=== PATIENT | male | born 1950 | race Caucasian/White ===

== ENCOUNTER 2020-05-24 06:10 | Day surgery (SDC) | payer OTHER ==
[2020-05-20 15:03] LABS: Absolute Lymphocytes (CBC) 2.9 K/uL (0.7-4.9); Basophils % 0.5 % (0-1.3); Hematocrit 44.4 % (39.6-49.0); MPV 8.2 fL (7.6-11.3); RBC Red Blood Cell Count 5.28 M/uL (4.33-5.43)
[2020-05-20 15:16] LABS: Potassium 4.3 mmol/L (3.5-5.1)
[2020-05-24] MEDS ORDERED: NA CHLORIDE 0.9% 1,000 ML ONE (06:44)
[2020-05-24] MEDS ORDERED: CEFAZOLIN/SWI 1gm 1 GM/10 ML SYR ONE (06:45)
[2020-05-24] MEDS ORDERED: LIDOCAINE 1% MPF 5 ML VIAL ONE (07:21)
[2020-05-24] MEDS ORDERED: MIDAZOLAM HCL 2 MG/2 ML INJ ONE (07:21)
[2020-05-24] MEDS ORDERED: propofoL 200 MG/20 ML VIAL IV ONE (07:21)
[2020-05-24] MEDS ORDERED: FENTANYL CITR 100 MCG/2 ML ONE ×2 (07:21→10:10)
[2020-05-24] MEDS ORDERED: KETOROLAC 30 MG/ML INJ ONE (08:10)
[2020-05-24] MEDS ORDERED: ONDANSETRON 4 MG/2 ML VIAL ONE (08:12)
[2020-05-24] MEDS ORDERED: EPHEDRINE SULF 50 MG/ML VIAL ONE (08:33)
[2020-05-24] MEDS ORDERED: NS 0.9% VIAL 10 ML ONE (08:33)
[2020-05-24 11:11] VITALS: TEMP 96.5; O2SAT 96
--- NOTE | 2020-05-24 11:35 | OP ---
Date of Procedure: 05/24/2020 Surgeon: Christo Walter MD Ent Nurse: JUAN Klein. Preoperative Diagnoses: Left forearm mass, right leg mass, left flank mass, posterior neck mass, and right neck mass. Please note, the patient tried to use a glaze grinder on the left forearm mass and right leg mass, had blee ding on the right leg, and when I evaluated him in the day surgery, it appeared that there was an ulc erated mass and probably needed a wide excision with a frozen section on the left forearm. There was hypertrophic keratosis that was present and that needed wide excision as well to rule out squamous c ell carcinoma. Therefore, informed consent was added to the existing consent for those 2 areas. Postoperative Diagnosis: Left forearm mass, right leg mass, left flank mass, posterior neck mass, an d right neck mass. Procedure: Wide excision of left forearm mass, 4 x 2 cm, with layered closure and frozen section, an d margins were free. Wide excision of right leg mass 5 x 3 cm with layered closure and frozen sectio n and margins were free. Wide excision of left flank mass 6 x 4 cm with layered closure. Wide excis ion of posterior neck mass 6 x 4 cm layered closure, and wide excision of right neck mass 4 x 2 cm wi th layered closure. Estimate Blood Loss: Minimal. Specimen: As above. Findings: As above. Anesthesia: General. Complications: None. Disposition: The patient tolerated the procedure in stable condition and taken to Recovery in good g eneral condition. Operative Note: The patient was brought to the OR and placed in supine position. General anesthesia was begun. The patient was placed in the supine position. Prepped and draped in the usual sterile fashion. Then, a 15 blade was used to make a 4 x 2 cm incision on the left forearm and right leg 5 x 3 cm and then subcutaneous tissues were divided and both masses excised. The forearm mass was a hyp ertrophic keratosis and the right leg mass was ulcerated mass. Frozen section revealed margins to be free, permanent. We will determine the final diagnosis. Wound was irrigated, bleeding was controll ed with cautery, flaps created, and then a 4 x 2 cm incision was closed in left forearm with 2-0 manager of exhibitions and collections aristides and then skin was closed with 3-0 nylon. Right leg 0 chromic and 2-0 nylon were used to close th e wound after flaps were created. Then, the patient had sterile dressing was applied and then placed in the right lateral position and the left flank and posterior neck were prepped and draped in the u sual sterile fashion and then in both areas 6 x 4 cm incision was made. These were sebaceous cysts. They were excised down through the subcutaneous tissues in both areas was 6 x 4 and then a mass was excised and sent to Pathology as a specimen. Wound was irrigated, flaps created, and then 0 chromic was used to close the subcutaneous tissue and 2-0 nylon was used to close the skin and then a sterile dressing was applied and the patient was positioned in the left lateral position and the right neck was prepped and draped in the usual sterile fashion. Marcaine was infiltrated locally in all of the incisions prior to the 15 blade incision and then a 4 x 2 cm incision was made on the right neck and a sebaceous cyst was excised down through the deep subcutaneous tissue and sent to Pathology as speci men. Wound was irrigated. Bleeding was controlled with cautery. 2-0 chromic was used to close the subcutaneous tissue. 3-0 nylon was used to close the skin. Sterile dressing was applied. The patie nt was awakened and taken to Recovery in good general condition. The patient will go to Day Surgery when stable. Disposition: Home. Condition: Stable. Discharge Instructions: Resume home medications and diet. Activity as tolerated. No heavy lifting. Remove outer dressing in 2 days. Shower. Keep wound clean and dry. Follow up in my office in 10 days, call for appointment. Tylenol No. 3 one tablet p.o. q.4 p.r.n. pain. Keflex 500 mg p.o. q.6. /MODL Voice ID: [id number] Report ID: [id number]
[2020-05-24 13:08] VITALS: BP 137/61
== END 2020-05-24 12:00 | disposition home or self-care (01) ==
LOC: OR 06:10
PROVIDERS: ATTEND Surgery
PROC: 0JBN0ZZ Excision of Right Lower Leg Subcutaneous Tissue and Fascia, Open Approach (ICD-10-PCS; 2020-05-24)
PROC: 0JB70ZZ Excision of Back Subcutaneous Tissue and Fascia, Open Approach (ICD-10-PCS; 2020-05-24)
PROC: 0JBH0ZZ Excision of Left Lower Arm Subcutaneous Tissue and Fascia, Open Approach (ICD-10-PCS; 2020-05-24)
PROC: 0JB40ZZ Excision of Right Neck Subcutaneous Tissue and Fascia, Open Approach (ICD-10-PCS; principal; 2020-05-24 07:30)
DX: D48.5 Neoplasm of uncertain behavior of skin (principal); L57.0 Actinic keratosis; L72.0 Epidermal cyst; D23.4 Other benign neoplasm of skin of scalp and neck; R22.41 Localized swelling, mass and lump, right lower limb; R22.2 Localized swelling, mass and lump, trunk; R22.1 Localized swelling, mass and lump, neck; Z20.822 Contact with and (suspected) exposure to COVID-19
CPT/HCPCS: 85025; 80048; 36415; 82947 ×2; 88331; 88332; 88304; 88305; 11404; 11406 ×2; 11426; 11424; U0002; J2704; J2250; J3010 ×2; J0690; J7030; J2405

== ENCOUNTER 2020-10-16 07:43 | Inpatient (IN) | payer OTHER ==
[2020-10-16] MEDS ORDERED: VANCOMYCIN/NS 1 gm 1 GM/250 ML BAG IV ONE (08:30)
[2020-10-16 08:41] LABS: Absolute Lymphocytes (CBC) 1.6 K/uL (0.7-4.9); Basophils % 0.6 % (0-1.3); Hematocrit 43.2 % (39.6-49.0); Lymphocytes % 12.5 % (15.3-44.8); MPV 7.6 fL (7.6-11.3); RBC Red Blood Cell Count 5.15 M/uL (4.33-5.43)
[2020-10-16] MEDS ORDERED: PIPER/TAZO/NS 3.375gm 3.375 GM/100 ML BAG ONE (08:41)
[2020-10-16 08:52] LABS: Bilirubin Direct 0.2 mg/dL (0-0.2); Bilirubin Total 0.8 mg/dL (0.2-1.0); Potassium 4.2 mmol/L (3.5-5.1); Protein, Total 8.4 g/dL (6.4-8.2)
[2020-10-16 08:55] LABS: Protime INR 1.07
--- NOTE | 2020-10-16 09:03 | EDPHYS ---
Physician Documentation [facility] Name: Donald Rogers Age: 70 yrs Sex: Male : 1950 Arrival Date: 10/16/2020 Time: 07:45 Bed 20 Private MD: ED Physician Frederick Acosta HPI: 10/16 15:30 This 70 yrs old Male presents to ER via Wheelchair with complaints of Black tw4 Toe. 15:30 The patient presents with pain. The complaints affect the left foot. Context: The tw4 problem was sustained at home. Onset: The symptoms/episode began/occurred at an unknown time. Modifying factors: The symptoms are alleviated by nothing, the symptoms are aggravated by nothing. Severity of symptoms: At their worst the symptoms were moderate, in the emergency department the symptoms are unchanged. The patient has not experienced similar symptoms in the past. Historical: - Allergies: 08:08 No Known Allergies; ph - Home Meds: 08:08 Metformin Oral [Active]; gabapentin oral oral [Active]; glimepiride Oral [Active]; ph - PMHx: 08:08 Diabetes - NIDDM; neuropathy; Heart Murmur; ph - Social history:: Smoking status: Patient reports the use of cigarette tobacco products, smokes one pack cigarettes per day. ROS: 15:30 MS/extremity: Positive for pain, of the left third toe. tw4 Exam: 15:52 Constitutional: This is a well developed, well nourished patient who is awake, alert, tw4 and in no acute distress. Head/Face: Normocephalic, atraumatic. Chest/axilla: Normal chest wall appearance and motion. Nontender with no deformity. No lesions are appreciated. Cardiovascular: Regular rate and rhythm with a normal S1 and S2. No gallops, murmurs, or rubs. Normal PMI, no JVD. No pulse deficits. Respiratory: Lungs have equal breath sounds bilaterally, clear to auscultation and percussion. No rales, rhonchi or wheezes noted. No increased work of breathing, no retractions or nasal flaring. Abdomen/GI: Soft, non-tender, with normal bowel sounds. No distension or tympany. No guarding or rebound. No evidence of tenderness throughout. Back: No spinal tenderness. No costovertebral tenderness. Full range of motion. Skin: Warm, dry with normal turgor. Normal color with no rashes, no lesions, and no evidence of cellulitis. Neuro: Awake and alert, GCS 15, oriented to person, place, time, and situation. Cranial nerves II-XII grossly intact. Motor strength 5/5 in all extremities. Sensory grossly intact. Cerebellar exam normal. Normal gait. 15:52 Musculoskeletal/extremity: Extremities: noted in the left foot: Vital Signs: 08:03 BP 120 / 103; Pulse 89; Resp 18; Temp 98.1(O); Pulse Ox 99% on R/A; Weight 99.79 kg; ph Height 6 ft. 0 in. (182.88 cm); 08:33 BP 143 / 65; Pulse 80; Resp 17; Pulse Ox 99% on R/A; tw2 09:33 BP 142 / 66; Pulse 81; Resp 17; Pulse Ox 99% on R/A; tw2 10:00 BP 124 / 99; Pulse 76; Resp 20; Pulse Ox 95% on R/A; tw2 11:23 BP 135 / 88; Pulse 79; Resp 17; Pulse Ox 95% on R/A; tw2 20:35 BP 136 / 89; Pulse 70; Resp 16; Pulse Ox 95% ; rr5 08:03 Body Mass Index 29.84 (99.79 kg, 182.88 cm) ph MDM: 09:03 Patient medically screened. tw4 15:55 Differential diagnosis: fracture. Data reviewed: vital signs, nurses notes. Data tw4 interpreted: Pulse oximetry: Interpretation: normal. Special discussion: I discussed with the patient/guardian in detail that at this point there is no indication for admission to the hospital. It is understood, however, that if the symptoms persist or worsen the patient needs to return immediately for re-evaluation. 15:55 Data reviewed: lab test result(s), cardiac enzymes, CBC, electrolytes, EKG, radiologic tw4 studies, plain films. Test interpretation: by ED physician or midlevel provider: ECG, plain radiologic studies. Counseling: I had a detailed discussion with the patient and/or guardian regarding: the historical points, exam findings, and any diagnostic results supporting the discharge/admit diagnosis, lab results, radiology results. Physician consultation: Nguyễn Pinon regarding admission, to the telemetry unit. patient's condition, and will see patient in inpatient room. 10/16 08:00 Order name: Wound Culture tw4 10/16 08:00 Order name: Amylase, Serum tw4 10/16 08:00 Order name: Basic Metabolic Panel tw4 10/16 08:00 Order name: Blood Culture Adult (2) tw4 10/16 08:00 Order name: CBC with Diff; Complete Time: 08:53 tw4 10/16 08:00 Order name: Lactate; Complete Time: 08:53 tw4 10/16 08:00 Order name: LFT's; Complete Time: 08:53 tw4 10/16 08:00 Order name: Lipase; Complete Time: 08:53 tw4 10/16 08:00 Order name: Procalcitonin; Complete Time: 15:22 tw4 10/16 08:00 Order name: Protime (+inr); Complete Time: 15:22 tw4 10/16 08:00 Order name: Ptt, Activated; Complete Time: 15:22 tw4 10/16 08:00 Order name: Wound Culture EDVA 10/16 08:00 Order name: Amylase; Complete Time: 08:53 EDMS 10/16 08:00 Order name: Basic Metabolic Panel; Complete Time: 08:53 EDMS 10/16 08:00 Order name: Cardiac monitoring; Complete Time: 08:32 tw4 10/16 08:00 Order name: IV Saline Lock - Large Bore; Complete Time: 08:32 tw4 10/16 08:00 Order name: Labs collected and sent; Complete Time: 08:32 tw4 10/16 08:00 Order name: Foot Left 3 View XRAY; Complete Time: 10:00 tw4 10/16 08:00 Order name: Blood Culture EDMS 10/16 11:52 Order name: Glucose, Ancillary Testing; Complete Time: 15:22 EDMS 10/16 13:22 Order name: US; Complete Time: 15:22 EDMS 10/16 13:42 Order name: Lipid Profile; Complete Time: 15:22 EDMS 10/16 13:44 Order name: Hemoglobin A1c; Complete Time: 15:22 EDMS 10/16 13:45 Order name: Troponin I; Complete Time: 15:22 EDMS 10/16 15:14 Order name: CORONAVIRUS EDVA 10/16 16:01 Order name: SARS-COV-2 RT PCR EDMS 10/16 17:39 Order name: Urine Dipstick-Ancillary EDMS 10/16 08:00 Order name: O2 Per Protocol; Complete Time: 08:18 tw4 10/16 08:00 Order name: O2 Sat Monitoring; Complete Time: 08:19 tw4 10/16 08:00 Order name: Urine Dipstick-Ancillary (obtain specimen); Complete Time: 19:26 tw4 Administered Medications: 08:25 Drug: Zosyn (piperacillin-tazobactam) 3.375 grams Route: IVPB; Infused Over: 60 mins; tw2 Site: right antecubital; 09:32 Follow up: Response: No adverse reaction; IV Status: Completed infusion; IV Intake: tw2 100ml 09:30 Drug: vancoMYCIN 1 grams Route: IVPB; Infused Over: 2 hrs; Site: right antecubital; tw2 12:02 Follow up: Response: No adverse reaction; IV Status: Completed infusion; IV Intake: tw2 250ml Disposition: 10/16/20 09:03 Hospitalization ordered by Nguyễn Pinon for Inpatient Admission. Preliminary diagnosis are Cellulitis of left lower limb, Gangrene, not elsewhere classified, Diabetes mellitus due to underlying condition with foot ulcer. - Bed requested for Telemetry/MedSurg (Inpatient). - Status is Inpatient Admission. rr5 - Condition is Stable. - Problem is an ongoing problem. - Symptoms are unchanged. Signatures: Dispatcher [employer] EDVA Diana Wade Patricia, RN RN Afua Kim RN RN tw2 Frederick Acosta MD MD tw4 Dave Quiroz RN RN rr5 Corrections: (The following items were deleted from the chart) 08:32 08:00 Accucheck ordered. tw4 tw2 11:27 09:03 Hospitalization Ordered by Nguyễn Pinon for Inpatient Admission. Preliminary bd diagnosis is Cellulitis of left lower limb; Gangrene, not elsewhere classified; Diabetes mellitus due to underlying condition with foot ulcer. Bed requested for Telemetry/MedSurg (Inpatient). Status is Inpatient Admission. Condition is Stable. Problem is an ongoing problem. Symptoms are unchanged. tw4 18:48 11:27 10/16/2020 09:03 Hospitalization Ordered by Nguyễn Pinon for Inpatient bd Admission. Preliminary diagnosis is Cellulitis of left lower limb; Gangrene, not elsewhere classified; Diabetes mellitus due to underlying condition with foot ulcer. Bed requested for [facility] ER HOLD. Status is Inpatient Admission. Condition is Stable. Problem is an ongoing problem. Symptoms are unchanged. bd 21:00 18:48 10/16/2020 09:03 Hospitalization Ordered by Nguyễn Pinon for Inpatient rr5 Admission. Preliminary diagnosis is Cellulitis of left lower limb; Gangrene, not elsewhere classified; Diabetes mellitus due to underlying condition with foot ulcer. Bed requested for Telemetry/MedSurg (Inpatient). Status is Inpatient Admission. Condition is Stable. Problem is an ongoing problem. Symptoms are unchanged. bd
--- NOTE | 2020-10-16 09:03 | ER ---
Nurse's Notes [facility] Name: Donald Rogers Age: 70 yrs Sex: Male : 1950 Arrival Date: 10/16/2020 Time: 07:45 Bed 20 Private MD: Diagnosis: Cellulitis of left lower limb;Gangrene, not elsewhere classified;Diabetes mellitus due to underlying condition with foot ulcer Presentation: 10/16 08:03 Chief complaint: Patient states: "Gangrene" to left 4th toe, unsure of when problem ph started d/t neuropathy. L 4th digit noted to be blackened in appearance, slight swelling and redness to L foot, pt denies fever N/V. Coronavirus screen: Client denies travel out of the [place] in the last 14 days. Ebola Screen: No symptoms or risks identified at this time. Initial Sepsis Screen: Does the patient meet any 2 criteria? No. Patient's initial sepsis screen is negative. Does the patient have a suspected source of infection? Yes: Skin breakdown/wound. Risk Assessment: Do you want to hurt yourself or someone else? Patient reports no desire to harm self or others. Onset of symptoms was October 16, 2020. 08:03 Method Of Arrival: Wheelchair ph 08:03 Acuity: ARIS 3 ph Historical: - Allergies: 08:08 No Known Allergies; ph - Home Meds: 08:08 Metformin Oral [Active]; gabapentin oral oral [Active]; glimepiride Oral [Active]; ph - PMHx: 08:08 Diabetes - NIDDM; neuropathy; Heart Murmur; ph - Social history:: Smoking status: Patient reports the use of cigarette tobacco products, smokes one pack cigarettes per day. Screenin:57 Abuse screen: Denies threats or abuse. Nutritional screening: No deficits noted. tw2 Tuberculosis screening: No symptoms or risk factors identified. Fall Risk Secondary diagnosis (15 points) impaired mobility, Ambulatory Aid- Crutches/Cane/Walker (15 pts). Assessment: 07:55 Reassessment: provider at bedside at this time. tw2 08:41 General: Appears in no apparent distress. obese, Behavior is calm, cooperative, tw2 appropriate for age. Pain: Complains of pain in plantar aspect of left fourth toe, left fourth toe and Left fourth toenail. Neuro: Level of Consciousness is awake, alert, obeys commands, Oriented to person, place, time, situation. Cardiovascular: Patient's skin is warm and dry. Respiratory: Airway is patent Respiratory effort is even, unlabored, Respiratory pattern is regular, symmetrical. GI: No signs and/or symptoms were reported involving the gastrointestinal system. : No signs and/or symptoms were reported regarding the genitourinary system. EENT: No signs and/or symptoms were reported regarding the EENT system. Derm: Skin is dry. Musculoskeletal: Range of motion: intact in all extremities, Reports "blackness to my 4th toe, i want leech therapy done to it but im sure they are going to amputate it, not sure how long it has been that way". 08:45 Reassessment: xray at bedside at this time. tw2 09:03 Reassessment: hospitalist at bedside at this time. tw2 09:33 Reassessment: Patient appears in no apparent distress at this time. No changes from tw2 previously documented assessment. Patient and/or family updated on plan of care and expected duration. Pain level reassessed. Patient is alert, oriented x 3, equal unlabored respirations, skin warm/dry/pink. 10:30 Reassessment: Patient appears in no apparent distress at this time. No changes from tw2 previously documented assessment. Patient and/or family updated on plan of care and expected duration. Pain level reassessed. Patient is alert, oriented x 3, equal unlabored respirations, skin warm/dry/pink. 11:23 Reassessment: Patient appears in no apparent distress at this time. No changes from tw2 previously documented assessment. Patient and/or family updated on plan of care and expected duration. Pain level reassessed. Patient is alert, oriented x 3, equal unlabored respirations, skin warm/dry/pink. 21:00 Reassessment: patient insisting he wants to go home and come back in the morning." he rr5 stated if you will not do the surgery tonight I want to leave." explained the plans for tonight but still insisting to go home. hospitalist informed and talk to the patient at bedside, but opted to go and don't want to sign the AMA and dont want to take out his IV cannula charge nurse spoke to patient and he agreed to stay for admission. Vital Signs: 08:03 BP 120 / 103; Pulse 89; Resp 18; Temp 98.1(O); Pulse Ox 99% on R/A; Weight 99.79 kg; ph Height 6 ft. 0 in. (182.88 cm); 08:33 BP 143 / 65; Pulse 80; Resp 17; Pulse Ox 99% on R/A; tw2 09:33 BP 142 / 66; Pulse 81; Resp 17; Pulse Ox 99% on R/A; tw2 10:00 BP 124 / 99; Pulse 76; Resp 20; Pulse Ox 95% on R/A; tw2 11:23 BP 135 / 88; Pulse 79; Resp 17; Pulse Ox 95% on R/A; tw2 20:35 BP 136 / 89; Pulse 70; Resp 16; Pulse Ox 95% ; rr5 08:03 Body Mass Index 29.84 (99.79 kg, 182.88 cm) ph ED Course: 07:45 Patient arrived in ED. ds1 07:48 Afua Kim RN is Primary Nurse. tw2 07:48 Frederick Acosta MD is Attending Physician. tw4 07:50 Bed in low position. Call light in reach. Pulse ox on. NIBP on. tw2 07:55 Inserted saline lock: 20 gauge in right antecubital area, using aseptic technique. tw2 ,using aseptic technique. by ALICJA sims Blood collected. 08:06 Triage completed. ph 08:08 Arm band placed on Patient placed in an exam room, on a stretcher. ph 09:00 Nguyễn Pinon is Hospitalizing Provider. tw4 09:01 Foot Left 3 View XRAY In Process Unspecified. EDMS 11:26 No provider procedures requiring assistance completed. tw2 11:26 Patient admitted, IV remains in place. tw2 Administered Medications: 08:25 Drug: Zosyn (piperacillin-tazobactam) 3.375 grams Route: IVPB; Infused Over: 60 mins; tw2 Site: right antecubital; 09:32 Follow up: Response: No adverse reaction; IV Status: Completed infusion; IV Intake: tw2 100ml 09:30 Drug: vancoMYCIN 1 grams Route: IVPB; Infused Over: 2 hrs; Site: right antecubital; tw2 12:02 Follow up: Response: No adverse reaction; IV Status: Completed infusion; IV Intake: tw2 250ml Intake: 09:32 IV: 100ml; Total: 100ml. tw2 12:02 IV: 250ml; Total: 350ml. tw2 Outcome: 09:03 Decision to Hospitalize by Provider. tw4 11:26 Admitted to ER Hold. Please see [facility] for further documentation. tw2 11:26 Condition: stable 11:26 Instructed on the need for admit. 21:00 Patient left the ED. rr5 Signatures: Dispatcher [employer] Shaina Grubbs ds1 Elana Taylor, RN RN Julio, Afua RN RN tw2 Frederick Acosta MD MD tw4 Dave Quiroz RN RN rr5
--- NOTE | 2020-10-16 09:11 | RAD REPORT ---
EXAM DESCRIPTION: RAD - Foot Left 3 View - 10/16/2020 9:01 am CLINICAL HISTORY: r/o osteo Pain and swelling COMPARISON: No comparisons FINDINGS: Mild soft tissue swelling affects the third and fourth toe. No radiographic evidence of os teomyelitis. Large plantar and small posterior calcaneal spurs.
[2020-10-16] MEDS ORDERED: LABETALOL 20 MG/4ML SYRINGE IV PRN (11:03)
[2020-10-16] MEDS ORDERED: D50W 25 GM/50 ML SYRINGE IV PRN (11:23)
[2020-10-16] MEDS ORDERED: GLUCAGON 1 MG/VIAL IM PRN (11:23)
[2020-10-16] MEDS ORDERED: MORPHINE 4 MG/ML SYR IV PRN (11:26)
[2020-10-16] MEDS ORDERED: ACETAMINOPHEN 500 MG TAB PO PRN (11:26)
[2020-10-16] MEDS ORDERED: ONDANSETRON 4 MG/2 ML VIAL IV PRN (11:26)
[2020-10-16] MEDS ORDERED: ASPIRIN 81 MG CHEWABLE TABLET PO SCH (11:30)
[2020-10-16] MEDS: INSULIN -REGULAR HUMAN 50 UNIT/0.5 ML ML SQ SCH ×3 (11:30→21:00)
--- NOTE | 2020-10-16 11:39 | P.HP ---
Certification for Inpatient Patient admitted to: Inpatient With expected LOS: >2 Midnights Patient will require the following post-hospital care: None Practitioner: I am a practitioner with admitting privileges, knowledge of patient current condition, hospital course, and medical plan of care. Services: Services provided to patient in accordance with Admission requirements found in Title 42 Section 412.3 of the Code of Federal Regulations Patient History Date of Service: 10/16/20 Reason for admission: Left 4th Digit Gangrene and Left foot cellulitis History of Present Illness: Patient is a 70-year-old male with a past medical history significant for Heart Murmur, DM 2 with neuropathy who presents with complaint of left 4th digit gangrene, left foot redness and swelling. Patient reported that he noticed discoloration on the left 4th digit 5 days ago. Patient reported that the left 4th digit is now completely black. Patient also reports left foot pain rated as 10/10 and described as throbbing in quality. Patient denies any other signs and symptoms. Symptoms are aggravated or relieved by nothing. Patient reported that he has been having trouble walking due to his Bilateral lower extremity neuropathy. Patient decided to present to the hospital due to worsening symptoms. Allergies No Known Allergies Allergy (Unverified 05/20/20 14:20) Home Medications: Aspirin 81 mg PO DAILY 05/20/20 Metformin HCl 1,000 mg PO BID 05/20/20 - Past Medical/Surgical History -: Heart murmur -: DM 2 with neuropathy. - Social History Smoking Status: Current every day smoker Counseled patient to stop smoking for: less than 10 minutes Smoking therapy provided: Yes Patient receptive to therapy: No Alcohol use: Yes CD- Drugs: No Caffeine use: Yes Place of Residence: Home Review of Systems General: Unremarkable Eyes: Unremarkable ENT: Unremarkable Respiratory: Unremarkable Cardiovascular: Unremarkable Gastrointestinal: Unremarkable Genitourinary: Unremarkable Musculoskeletal: Leg Pain, Other (Left foot redness\swelling, Left 4th digit gangrene ) Integumentary: Unremarkable Neurological: Unremarkable Lymphatics: Unremarkable Physical Examination - Physical Exam General: Alert, In no apparent distress, Oriented x3 HEENT: Atraumatic, PERRLA, Mucous membr. moist/pink, EOMI, Sclerae nonicteric Neck: Supple, 2+ carotid pulse no bruit, No LAD, Without JVD or thyroid abnormality Respiratory: Clear to auscultation bilaterally, Normal air movement Cardiovascular: No edema, Regular rate/rhythm, Normal S1 S2 Capillary refill: Brisk Gastrointestinal: Normal bowel sounds, No tenderness Musculoskeletal: No clubbing, No tenderness Integumentary: No rashes, Tenderness/swelling (Left foot ), Erythema Neurological: Normal gait, Normal speech, Normal strength at 5/5 x4 extr, Normal tone, Normal affect Lymphatics: No axilla or inguinal lymphadenopathy External genitalia: Deferred Rectal: Deferred - Studies Laboratory Data (last 24 hrs) 10/16/20 08:17: PT 12.3, INR 1.07, APTT 31.0 10/16/20 08:17: WBC 12.70 H, Hgb 14.9, Hct 43.2, Plt Count 327 10/16/20 08:17: Sodium 138, Potassium 4.2, BUN 12, Creatinine 0.92, Glucose 164 H, Total Bilirubin 0.8, AST 11 L, ALT 24, Alkaline Phosphatase 77, Amylase 27, Lipase 56 L Assessment and Plan - Plan --Left 4th digit gangrene. X-ray does not indicate any osteomyelitis. Blood cultures pending. Patient placed on antibiotics. Surgeon consulted. Bilateral Lower extremity Doppler pending. Will await further recommendations from surgeon. --Acute Pain. Will manage pain with current pain medication regimen --Left foot cellulitis. Blood cultures pending. Continue antibiotics. -- Leukocytosis. Blood cultures pending. Continue antibiotics. --DM 2 with neuropathy. BS monitoring with sliding scale insulin. Continue home medication for his neuropathy. --Nicotine dependence. Patient placed on nicotine patch and counseled on tobacco cessation --CKD 2. Stable. Will continue to monitor renal functions. --DVT prophylaxis with SCDs. Discharge Plan: Home Plan to discharge in: Greater than 2 days - Advance Directives Does patient have a Living Will: No Does patient have a Durable POA for Healthcare: No - Code Status/Comfort Care Code Status Assessed: Yes Code Status: Full Code Critical Care: No
[2020-10-16] MEDS ORDERED: VANCOMYCIN 1 GM in NA CHLORIDE 0.9% 500 ML IVPB SCH (12:00)
[2020-10-16] MEDS: NICOTINE 21 MG/PAT TD SCH (12:27)
--- NOTE | 2020-10-16 13:21 | RAD REPORT ---
EXAM DESCRIPTION: US - Lower Extremity Arterial Bilat - 10/16/2020 1:05 pm CLINICAL HISTORY: gangreneleft fourth toe, leg pain COMPARISON: None. TECHNIQUE: Visual inspection of the arterial tree performed. Waveforms were obtained along the lengt h of each lower extremity. Velocity values obtained as well. FINDINGS: Right lower extremity shows triphasic waveform pattern in the common femoral and superfici al femoral arteries tapering to a biphasic flow in the popliteal artery. Right posterior tibial arter y shows a significantly dampened monophasic waveform pattern. Dorsalis pedis shows monophasic wavefor m. Left common femoral artery waveform pattern is triphasic. Proximal and mid portions of the superficia l femoral artery showing dampened biphasic to monophasic waveform pattern. The distal superficial fem oral artery show significant atherosclerotic plaquing changes with elevated velocity. The left dorsal is pedis artery is a monophasic waveform pattern with no blood flow confirmed in the posterior tibial artery. . IMPRESSION: Bilateral significant peripheral arterial disease is present. Patient has significant flow restricting stenosis at the left superficial femoral artery distally. No flow could be confirmed in the left posterior tibial artery.
[2020-10-16 17:39] LABS: Urine Blood Negative (Negative); Urine Glucose Negative (Negative); Urine Protein 2+ (Negative); Urine Specific Gravity >=1.030 (1.005-1.030)
--- NOTE | 2020-10-16 18:41 | CON ---
Date of Consultation: 10/16/2020 Reason For Consultation: Gangrene of left fourth. History Of Present Illness: The patient is a 70-year-old gentleman, who states over the last 4-5 day s, he has had increasing discoloration of the left fourth toe associated with cool feeling of the alexander t and some redness when he is dependent and now the fourth toe is almost black and complaining of kaley n, throbbing in nature. No sore throat, runny nose, cough, headaches, or dizziness. No chest pain. No fever or chills. The patient had procedures done by me where I took off a lot of masses on him e arlier this year. Review of Systems: Otherwise unremarkable. Past Medical History: Heart murmur, type 2 diabetes. Past Surgical History: Excision of multiple masses and external fixator on his lower extremity. Medications: Reviewed. Allergies: NO ALLERGIES. Social History: He does smoke, has been counseled. Denies drinking. Family History: Noncontributory. Physical Examination: Vital Signs: Stable. He is afebrile. General: He is awake, alert, and oriented x3. Head and Neck: Cranial nerves 2 through 12 gross within normal limits. No neck masses. No JVD. Th roat clear. Neck is supple. Chest: Clear. Heart: S1, S2 with murmur. Abdomen: Soft. Extremity: Diminished dorsalis pedis and posterior tibial pulses. There is redness on the left fore foot with bluish black discoloration of the fourth toe on the left side. There is no warmth. There is a cool feeling to the foot. Laboratory Data: White count is 12.7 with a left shift. INR is 1.07. Procalcitonin is normal. Lac tic acid is normal. His glucose is 164. His x-ray does not show any evidence of osteo. Assessment: Gangrene of left foot fourth toe, significant peripheral vascular disease. Recommendations: Arterial Doppler has just been done. We will get the results and if it deemed that the patient needs intervention, we will make sure that we could provide that for the patient at this facility. If not, the patient will need to be transferred. Plan of care discussed in detail with Tessa Amor. SHIRLEY/GUCCI Voice ID: [id number] Report ID: [id number]
[2020-10-16] MEDS: CEFTRIAXONE/SWI 1gm 1 GM/10 ML SYR IV SCH (21:00)
[2020-10-16] MEDS ORDERED: HEPARIN 5000 UNIT/ML 1 ML VIAL SQ SCH (21:00)
[2020-10-16] MEDS ORDERED: CEFTRIAXONE 1 GM/NS 50 ML 1 GM/50 ML BAG IV SCH (21:00)
[2020-10-16] MEDS: VANCOMYCIN 1.75 GM in NA CHLORIDE 0.9% 500 ML IVPB SCH (21:45)
[2020-10-17 03:47] LABS: Absolute Lymphocytes (CBC) 1.9 K/uL (0.7-4.9); Basophils % 1.1 % (0-1.3); Hematocrit 38.9 % (39.6-49.0); Lymphocytes % 19.8 % (15.3-44.8); MPV 7.7 fL (7.6-11.3); RBC Red Blood Cell Count 4.64 M/uL (4.33-5.43)
[2020-10-17 04:00] LABS: BUN Blood Urea Nitrogen 12 mg/dL (7-18); Bicarbonate 28 mmol/L (21-32); Glucose Level 109 mg/dL (74-106); Potassium 3.9 mmol/L (3.5-5.1); Sodium Level 141 mmol/L (136-145)
[2020-10-17] MEDS ORDERED: POTASSIUM CL SA 10 MEQ TAB PO ONE (06:23)
[2020-10-17] MEDS: VANCOMYCIN 1.75 GM in NA CHLORIDE 0.9% 500 ML IVPB SCH ×2 (06:28→17:55)
[2020-10-17] MEDS: INSULIN -REGULAR HUMAN 50 UNIT/0.5 ML ML SQ SCH ×4 (07:30→21:00)
[2020-10-17] MEDS ORDERED: NICOTINE 21 MG/PAT TD SCH (09:00)
[2020-10-17] MEDS: CEFTRIAXONE/SWI 1gm 1 GM/10 ML SYR IV SCH ×2 (09:00→21:23)
--- NOTE | 2020-10-17 09:21 | CON ---
Date of Consultation: 10/16/2020 Reason For Consultation: Peripheral arterial disease. History Of Present Illness: Mr. Hernández is a 70-year-old white male with history of diabetes, neuro yuli, who was admitted for gangrene in the left toes, planning to have surgery, arterial Doppler pantera wed significant SFA stenosis and I was consulted. The patient denied any cardiac symptoms. Denied a ny PND, orthopnea, pedal edema, palpitations, or syncope. Denied any fever or chills or cough. Allergies: NONE. Review of Systems: Negative. Social History: Positive for tobacco. Medications: Include metformin, gabapentin, and glimepiride. Physical Examination: Vital Signs: Stable, afebrile, sinus rhythm. HEENT: Negative. Neck: Supple with no bruit. Chest: Clear to auscultation and percussion. Cardiac: Revealed a regular rhythm and rate. No murmurs, gallops, or rubs. Abdomen: Benign. Extremities: Revealed no clubbing, cyanosis, or edema. He did have gangrene in the left fourth and fifth toes. Diagnostic Data: His creatinine was 0.92. His white count was 9.5, hemoglobin is 14.9. He had an a rterial Doppler showing bilateral significant peripheral arterial disease, appeared to be mostly in t he superficial femoral artery. EKG was unremarkable. Foot x-ray showed no evidence of osteomyelitis . Impression And Plan: Gangrenous toes on the left side secondary to severe peripheral arterial diseas e with abnormal arterial Doppler and the patient is a diabetic. No cardiac symptoms. Normal EKG. I think he is cleared for surgery down the road, but before we do an abdominal angiogram on him with r unoff with possible intervention which will be done on 10/17/2020, the patient understands the risk a nd the benefits of the procedure and he agrees to proceed. The case will be discussed with Dr. Watler . BHAVANA/GUCCI Voice ID: [id number] Report ID: [id number]
[2020-10-17] MEDS: NICOTINE 21 MG/PAT TD SCH (10:11)
--- NOTE | 2020-10-17 11:10 | P.PN ---
Subjective Date of Service: 10/17/20 Chief Complaint: Left 4th Digit Gangrene and Left foot cellulitis Patient complaining of pain in the left foot. No fever. Arterial Doppler of bilateral lower extremity results reviewed and reporting bilateral significant peripheral artery disease. Physical Examination - Vital Signs Temperature: 98.2 F Blood Pressure: 148/57 Pulse: 66 Respirations: 20 Pulse Ox (%): 96 - Physical Exam General: Alert, In no apparent distress, Oriented x3 Neck: JVD not distended Respiratory: Clear to auscultation bilaterally, Normal air movement Cardiovascular: No edema, Regular rate/rhythm, Normal S1 S2 Gastrointestinal: Normal bowel sounds, Soft and benign, Non-distended, No tenderness Musculoskeletal: Other (Left foot Swollen compared to the right, gangrene loo sameer left 4th and 5th toe.) Integumentary: Erythema (Dorsum of left foot) Neurological: Normal strength at 5/5 x4 extr, Cranial nerves 3-12 intact - Studies Microbiology Data (last 24 hrs): 10/16/20 08:21 Wound - Left Foot Gram Stain - Final Assessment And Plan - Current Problems (Diagnosis) (1) Gangrene of toe of left foot Current Visit: Yes Status: Acute (2) Peripheral arterial disease Current Visit: Yes Status: Acute (3) Diabetes mellitus type 2 in obese Current Visit: Yes Status: Acute - Plan Cardiology input appreciated. General surgery input appreciated. Patient is scheduled for angiogram and possibly intervention for PAD prior to amputation. Dr. Walter is following for amputation. Continue antibiotics. Pain management as needed. Insulin sliding scale for glucose management.
[2020-10-17] MEDS ORDERED: NA CHLORIDE 0.9% 1,000 ML ONE (12:41)
[2020-10-17] MEDS ORDERED: HEPA 1000U/500MLS 2,000 UNIT/1,000 ML BAG IV ONE (13:05)
[2020-10-17] MEDS ORDERED: FENTANYL CITR 100 MCG/2 ML ONE (13:56)
[2020-10-17] MEDS ORDERED: HEPARIN 5000 UNIT/ML 1 ML VIAL ONE ×2 (13:56→14:48)
[2020-10-17] MEDS ORDERED: MIDAZOLAM HCL 2 MG/2 ML INJ ONE (13:56)
[2020-10-17] MEDS ORDERED: ATROPINE SULF 1 MG/10 ML SYR IV ONE (13:57)
[2020-10-17] MEDS ORDERED: D50W 25 GM/50 ML VIAL IV PRN (14:00)
[2020-10-17] MEDS ORDERED: CLOPIDOGREL 75 MG TABLET ONE (14:24)
[2020-10-17] MEDS ORDERED: ASPIRIN 325 MG TAB ONE (14:25)
[2020-10-17 16:59] VITALS: BMI 29.7
--- NOTE | 2020-10-17 18:48 | OP ---
Date of Procedure: 10/17/2020 Surgeon: GARCIA BOWERS Procedures Performed: 1.Distal aortogram with bilateral peripheral angiogram and runoff. 2.Balloon angioplasty of severe multiple lesions of the left SFA followed by stent placement in the following order of distal to proximal 7 x 100 mm overlapped with 7 x 60 mm and then a proximal stent that was 7 x 80 mm. Access: Right femoral artery 7-Gabonese closed with a 6-Gabonese Angio-Seal. Complications: None. Bleeding: Less than 10 mL. Indication For Procedure: Gangrene of the left foot and severe peripheral vascular disease. Description Of Procedure: After risks, benefits, and alternatives were explained, the patient agreed to proceed and signed informed consent. The patient was brought into the cardiac catheterization la boratory, prepped and draped in usual sterile fashion. Then, we accessed the right femoral artery us ing a micropuncture kit under ultrasound guidance as well as fluoroscopy, placed 7-Gabonese sheath and then we took a 6-Gabonese diagnostic DANIELLA catheter with an Advantage wire into the distal aorta and cros sed into the left common iliac and left femoral artery and then left SFA. Subsequently, we exchanged the 7-Gabonese sheath to a long 7-Gabonese Destination sheath and placed it in the left femoral artery. Then, during the procedure systemic heparin was given to assure ACT level above 250. Then, we advan guillermo the Advantage wire all the way through the SFA to cross the areas of stenosis and the area of tot al occlusion. Then, I used a 7 x 80 mm balloon to pre-dilate lesions and focal dissection happened i n multiple areas ended up putting a 7 x 100 mm stent overlapped by 7 x 60 mm stent in the and then pr oximally 7 x 80 mm stent with excellent results. I then removed the wire and sheath and closed the a ccess with 6-Gabonese Angio-Seal. The diagnostic part through the initial access that was obtained and a 6-Gabonese pigtail catheter was advanced over the wire into the distal aorta and obtained distal aortogram and peripheral angiogram w ith runoff. Findings: Distal aorta: There is a plaque in the distal aorta with about 10% to 20% occlusion, wide ly patent otherwise. Then, on the right angiogram, right common iliac has multiple areas of 30%. On right femoral artery, there is about 20% stenosis, diffuse. Right profunda is patent. T hen, the right SFA is patent with mid 30% stenosis. Below the knee vessels are patent. On the left side, the left common iliac has diffuse 30% stenosis and left femoral artery has diffuse 20% stenosis . The left profunda is patent and left SFA has a proximal 60% stenosis followed by 90% stenosis foll owed by 80% stenosis and then above the knee, it has total occlusion with reconstitution at the level of the knee, status post successful balloon angioplasty and stents as outlined above. Below the kne e, flow on the left is sluggish and very small vessels intervention showed flow all the wa y to the foot all the way to the ankle area, but very small vessels and there is a significant amount of collateral flow from multiple sites. Could not visualize the posterior tibial very well. Conclusion: Severe peripheral vascular disease, mainly the left SFA, status post successful balloon angioplasty followed by stent placement 7 x 100 mm and 7 x 60 mm and then 7 x 80 mm in multiple locat ions with a brisk good flow after the procedure showing good flow below the knee reaching probably th e ankle level at least. Recommendations: Aspirin and Plavix as well as high-dose statin and attempt medical therapy of his w ounds and hopefully this re-establishment of flow would help with the healing processing, Thank you for letting me to assist in caring for your patient. /GUCCI Voice ID: [id number] Report ID: [id number]
[2020-10-17] MEDS ORDERED: JUVEN PACKET PO SCH (21:00)
[2020-10-18 05:22] VITALS: O2SAT 94
[2020-10-18] MEDS: VANCOMYCIN 1.75 GM in NA CHLORIDE 0.9% 500 ML IVPB SCH (06:45)
[2020-10-18 08:29] VITALS: TEMP 97.6
--- NOTE | 2020-10-18 11:58 | P.DS ---
Admission Date: 10/16/20 Discharge Date: 10/18/20 Disposition: ROUTINE DISCHARGE Discharge Condition: FAIR Reason for Admission: Left 4th Digit Gangrene and Left foot cellulitis Consultations: General Surgery-Dr. 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 Symptoms have been present for about 5 days. His left 4th toe was turning black. He also reported severe pain in the left foot. Lab work showed mild leukocytosis but patient not septic. Patient was hospitalized for further managment. Hospital Course: Patient admitted to medical floor and treated with IV Rocephin and vancomycin. General surgery-Dr. Walter consulted who recommended arterial Doppler studies to assess blood flow in the lower extremities. Arterial Doppler studies demonstrated significant for refractory disease in both legs. Cardiology consulted, Dr. Rodgers performed angiogram and noted multiple severe lesions in the left SFA. Balloon angioplasty and stent placed, good blood flow reported after the procedure. At this point general surgery recommended medical management for the next few days with antibiotics, dual platelet therapy and statins to assess for by ability of the gangrenous toes before amputation. Patient not septic vitals are stable. He is discharged with oral antibiotics, aspirin and Plavix and lipitor. He is informed to follow with Dr. Walter next week in the [facility] for further assessment. Vital Signs/Physical Exam: Temp Pulse Resp BP Pulse Ox 97.6 F 72 18 158/73 H 96 10/18/20 08:00 10/18/20 08:00 10/18/20 04:00 10/18/20 08:00 10/18/20 08:00 General: Alert, In no apparent distress, Oriented x3 HEENT: Mucous membr. moist/pink, Sclerae nonicteric Neck: JVD not distended Respiratory: Clear to auscultation bilaterally, Normal air movement Cardiovascular: No edema, Regular rate/rhythm, Normal S1 S2 Gastrointestinal: Soft and benign, Non-distended, No tenderness Musculoskeletal: Swelling (Dorsum of left foot mildly swallow), Erythema (Dorsum of left foot), Tenderness (Dorsum of left foot), Other (Gangrene looking 4th and 5 th toes of the left leg.) Neurological: Normal strength at 5/5 x4 extr Laboratory Data at Discharge: WBC 9.50 K/uL (4.3-10.9) D 10/17/20 03:11 Hgb 13.3 g/dL (13.6-17.9) L 10/17/20 03:11 Hct 38.9 % (39.6-49.0) L 10/17/20 03:11 Plt Count 289 K/uL (152-406) 10/17/20 03:11 PT 12.3 SECONDS (9.5-12.5) 10/16/20 08:17 INR 1.07 10/16/20 08:17 APTT 31.0 SECONDS (24.3-36.9) 10/16/20 08:17 Sodium 141 mmol/L (136-145) 10/17/20 03:11 Potassium 3.9 mmol/L (3.5-5.1) 10/17/20 03:11 BUN 12 mg/dL (7-18) 10/17/20 03:11 Creatinine 0.68 mg/dL (0.55-1.3) 10/17/20 03:11 Glucose 109 mg/dL (74-106) H 10/17/20 03:11 Total Bilirubin 0.8 mg/dL (0.2-1.0) 10/16/20 08:17 AST 11 U/L (15-37) L 10/16/20 08:17 ALT 24 U/L (12-78) 10/16/20 08:17 Alkaline Phosphatase 77 U/L (45-117) 10/16/20 08:17 Troponin I < 0.02 ng/mL (0.0-0.045) 10/16/20 13:07 Triglycerides 117 mg/dL (<150) 10/16/20 13:07 Cholesterol 199 mg/dL (<200) 10/16/20 13:07 HDL Cholesterol 39 mg/dL (40-60) L 10/16/20 13:07 Cholesterol/HDL Ratio 5.10 10/16/20 13:07 Amylase 27 U/L (25-115) 10/16/20 08:17 Lipase 56 U/L (73-393) L 10/16/20 08:17 Home Medications: Gabapentin [Neurontin] 1 tab PO TID 10/17/20 Semaglutide [Rybelsus] 3 mg PO DAILY 10/17/20 Amox/Clavulanate [Augmentin 875-125 Tab] 1 each PO BID #28 tab 10/18/20 Aspirin [Aspirin EC] 81 mg PO DAILY #30 tablet. 10/18/20 Atorvastatin Calcium [Lipitor] 40 mg PO BEDTIME #30 tab 10/18/20 Clopidogrel Bisulfate [Plavix] 75 mg PO DAILY #30 tablet 10/18/20 Codeine/APAP [Tylenol W/Codeine #3 tab] 1 tab PO Q6HP PRN #30 tab 10/18/20 New Medications: Codeine/APAP [Tylenol W/Codeine #3 tab] 1 tab PO Q6HP PRN #30 tab PRN Reason: Pain Aspirin [Aspirin EC] 81 mg PO DAILY #30 tablet. Amox/Clavulanate [Augmentin 875-125 Tab] 1 each PO BID #28 tab Atorvastatin Calcium [Lipitor] 40 mg PO BEDTIME #30 tab Clopidogrel Bisulfate [Plavix] 75 mg PO DAILY #30 tablet Physician Discharge Instructions: PROBLEM: Gangrene GOAL: Clear understanding of disease process INSTRUCTIONS: Diet: diabetic Activity: As tolerated Please follow up in the [facility] With Dr. Walter on Wednesday. Call the [facility] at [phone] to make an appointment. Diet: ADA Activity: Ad ara Followup: Christo Walter MD [ACTIVE - CAN ADMIT] - (Follow up with Dr. Walter at [facility] on 10/22/2020 afternoon.) Justyna Jones DO [Primary Care Provider] - Time spent managing pt's care (in minutes): 36
--- NOTE | 2020-10-18 13:10 | PN ---
Date of Progress Note: 10/18/2020 Subjective: Please note, I was present when the patient was getting an angiogram done yesterday by Tessa Rodgers. He was able to reconstitute flow in the femoral artery all way down to the ankle and sten t was placed. He is on Plavix and aspirin. He is awake, alert. No pain. No fever or chills. Review of Systems: Otherwise unremarkable. Objective: Vital Signs: Stable. He is afebrile. General: He is awake, alert. Extremities: His left foot reveals the 4th toe to be black, however, the 5th toe is dark blue and th en the foot is red, but it may be from reperfusion. There is no warmth to his foot. Laboratory Data: Reviewed from yesterday. Assessment: Gangrene, left foot with severe peripheral vascular disease, status post interventional procedure to improve blood flow with stent. Recommendations: I would continue Plavix and aspirin. The patient can be discharged on oral antibio tics. Follow up with me in the [facility]. Once the patient's foot demarcates appropriate ly, we will make appropriate recommendation. I think the patient will at least need the 4th toe ampu tated and perhaps the 5th toe depending upon whether the recirculation allow the 5th toe to be salvag eable or not. Plan of care discussed in detail with Dr. Pinon. SHIRLEY/SEYMOURL Voice ID: [id number] Report ID: [id number]
[2020-10-18 13:39] VITALS: BP 157/69
== END 2020-10-18 15:18 | disposition home or self-care (01) | DRG 253 ==
LOC: ER 07:43 → ERHOLD 11:01 → 2ND 20:12
PROVIDERS: ADMIT Internal Medicine; ATTEND Internal Medicine
PROC: 047L36Z Dilation of Left Femoral Artery with Three Drug-eluting Intraluminal Devices, Percutaneous Approach (ICD-10-PCS; principal; 2020-10-17)
PROC: B41G1ZZ Fluoroscopy of Left Lower Extremity Arteries using Low Osmolar Contrast (ICD-10-PCS; 2020-10-17)
PROC: B41F1ZZ Fluoroscopy of Right Lower Extremity Arteries using Low Osmolar Contrast (ICD-10-PCS; 2020-10-17)
DX: E11.52 Type 2 diabetes mellitus with diabetic peripheral angiopathy with gangrene (principal); I96 Gangrene, not elsewhere classified; L03.116 Cellulitis of left lower limb; E11.40 Type 2 diabetes mellitus with diabetic neuropathy, unspecified; F17.210 Nicotine dependence, cigarettes, uncomplicated; E11.621 Type 2 diabetes mellitus with foot ulcer; L97.529 Non-pressure chronic ulcer of other part of left foot with unspecified severity; D72.829 Elevated white blood cell count, unspecified; N18.2 Chronic kidney disease, stage 2 (mild); E11.22 Type 2 diabetes mellitus with diabetic chronic kidney disease; E66.9 Obesity, unspecified; Z68.29 Body mass index [BMI] 29.0-29.9, adult; Z79.84 Long term (current) use of oral hypoglycemic drugs; Z79.899 Other long term (current) drug therapy; Z79.02 Long term (current) use of antithrombotics/antiplatelets; Z79.82 Long term (current) use of aspirin; Z71.6 Tobacco abuse counseling; Z20.822 Contact with and (suspected) exposure to COVID-19
CPT/HCPCS: 36200; 36415; 37226; 75630; 80048; 80061; 80076; 80202; 81003; 82150; 82947; 83036; 83605; 83690; 84145; 84484; 85025; 85347; 85610; 85730; 87040; 87070; 87077; 87186; 87205; 93925; 96365; 96366; 99285; C1725; C1760; C1769; C1893; J0696; J1644; J2250; J2543; J3010; J3370; J7030; J7040; U0003

== ENCOUNTER 2020-10-24 06:29 | Day surgery (SDC) | payer OTHER ==
[2020-10-22 16:16] LABS: Basophils % 0.7 % (0-1.3); Hematocrit 41.1 % (39.6-49.0); Lymphocytes % 15.5 % (15.3-44.8); MPV 7.7 fL (7.6-11.3); RBC Red Blood Cell Count 4.88 M/uL (4.33-5.43)
--- NOTE | 2020-10-22 16:47 | RAD REPORT ---
EXAM DESCRIPTION: Yordy Pa And Lat (2 Views)10/22/2020 4:27 pm CLINICAL HISTORY: Preop for foot surgery COMPARISON: April 2020 FINDINGS: 11 millimeter nodular opacity overlies left lung base. It is unchanged since the prior exa m Right lung appears clear. The lungs appear clear of acute infiltrate. The heart is normal size IMPRESSION: 11 millimeter nodular opacity overlies the left lung base may represent a nipple shadow. If this is a pulmonary nodule is unchanged from the April 2020 exam. It is recommended that the pa tient have a follow up x-ray in 6 months with left nipple marker for further evaluation
--- NOTE | 2020-10-23 07:27 | EKG ---
Test Date: 2020-10-22 Test Time: 14:54:38 Mold Runner: ROSETTE MEASUREMENT RESULTS: Intervals: Rate: 77 AZ: 220 QRSD: 104 QT: 412 QTc: 466 Sledge: P: 63 AZ: 220 QRS: 49 T: 198 INTERPRETIVE STATEMENTS: Sinus rhythm with 1st degree AV block ST & T wave abnormality, consider lateral ischemia Prolonged QT Abnormal ECG No previous ECG available for comparison Electronically Signed On 10-23-20 07:26:25 CDT by Rolly Pacheco
[2020-10-24] MEDS: NA CHLORIDE 0.9% 1,000 ML ONE ×2 (07:18→07:30)
[2020-10-24] MEDS ORDERED: D50W 50 ML IV ONE (07:28)
[2020-10-24] MEDS ORDERED: CEFAZOLIN/SWI 1gm 1 GM/10 ML SYR ONE (07:28)
[2020-10-24] MEDS ORDERED: COLLAGENASE 30 GM OINTMENT TOP ONE (08:30)
[2020-10-24 08:55] VITALS: O2SAT 98
[2020-10-24 10:03] VITALS: BP 140/49; TEMP 97.1
--- NOTE | 2020-10-24 15:55 | OP ---
Date of Procedure: 10/24/2020 Surgeon: Christo Walter MD Batch Or Continuous Still Operator: JUAN Carnes. Preoperative Diagnoses: Gangrene of left fourth and fifth toe and severe peripheral vascular disease , status post stent placement. Postoperative Diagnoses: Gangrene of left fourth and fifth toe and severe peripheral vascular diseas e, status post stent placement. Procedure: Left fourth and fifth toe amputation. Estimated Blood Loss: Minimal. Specimen: Left fourth and fifth toes. Finding: As above. Anesthesia: General. Complications: None. Disposition: The patient tolerated the procedure in stable condition and taken to Recovery in good g eneral condition. Procedure In Detail: The patient was brought to the OR, placed in supine position. General anesthes ia begun. The patient was prepped and draped in the usual sterile fashion. Marcaine 0.5% infiltrate d in the local area where the incision was made. Then, a 15 blade was used to make a sharp incision at the base of both toes approximately 5 x 2 cm. Subcutaneous tissue divided. All necrotic tissue w as included in the incision sites and the incision proceeded to the proximal phalanx and then bone cu tter was used to cut both fourth and fifth toes. Entire gangrenous tissue was removed. Wound was ir rigated. Bleeding was controlled with cautery. Collagenase dressing was applied. The patient was a wakened and taken to Recovery in good general condition. Discharge Note: The patient will go to Day Surgery and home when stable. Disposition: Home. Condition: Stable. Discharge Instructions: Resume home medications and diet. Activity as tolerated. No heavy lifting. Remove outer dressing in a.m. Collagenase dressing daily. Home health as ordered. Ultracet 1 tab let q.4 p.r.n. pain. Follow up in [facility] in 1 week. /MODL Voice ID: [id number] Report ID: [id number]
== END 2020-10-24 09:50 | disposition home or self-care (01) ==
LOC: OR 06:29
PROVIDERS: ATTEND Surgery
PROC: 0Y6Y0Z1 Detachment at Left 5th Toe, High, Open Approach (ICD-10-PCS; 2020-10-24)
PROC: 0Y6W0Z1 Detachment at Left 4th Toe, High, Open Approach (ICD-10-PCS; principal; 2020-10-24 07:30)
DX: E11.621 Type 2 diabetes mellitus with foot ulcer (principal); L97.521 Non-pressure chronic ulcer of other part of left foot limited to breakdown of skin; I96 Gangrene, not elsewhere classified; I73.9 Peripheral vascular disease, unspecified; Z20.822 Contact with and (suspected) exposure to COVID-19
CPT/HCPCS: 93005; 85025; 80048; 36415; 82947 ×2; 88305; 88311; 71046; 28825 ×2; U0003; J0690; J7030; J3590

== ENCOUNTER 2023-05-05 06:59 | Day surgery (SDC) | payer OTHER ==
[2023-05-03 11:32] LABS: Hematocrit 36.3 % (39.6-49.0); Lymphocytes % 21.2 % (15.3-44.8); Platelets 299 thou/uL (152-406); RBC Red Blood Cell Count 4.13 M/uL (4.33-5.43)
[2023-05-03 11:33] LABS: Absolute Lymphocytes (CBC) 1.6 K/uL (0.7-4.9)
[2023-05-05] MEDS ORDERED: CEFAZOLIN SODIUM 2 GM/VIAL ONE (07:16)
[2023-05-05] MEDS ORDERED: NA CHLORIDE 0.9% 1,000 ML ONE (07:17)
[2023-05-05] MEDS ORDERED: MIDAZOLAM HCL 2 MG/2 ML INJ ONE (08:31)
[2023-05-05] MEDS ORDERED: propofoL 200 MG/20 ML VIAL IV ONE (08:31)
[2023-05-05] MEDS ORDERED: FENTANYL CITR 100 MCG/2 ML ONE (08:31)
[2023-05-05] MEDS ORDERED: ONDANSETRON 4 MG/2 ML VIAL ONE (08:31)
[2023-05-05] MEDS ORDERED: LIDOCAINE 2% MPF 5 ML VIAL ONE (08:31)
[2023-05-05] MEDS ORDERED: EPHEDRINE SULF 50 MG/ML VIAL ONE (09:05)
--- NOTE | 2023-05-05 10:47 | P.OP ---
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, right face mass and right thumb mass Postop diagnosis: Same Procedure performed: Wide excision left face mass 4 x 1 cm with layered closure, wide excision right face mass 4 x 2 cm with layered closure and excision of a right thumb ganglion cyst Surgeon: Christo Walter MD Loss Prevention Manager: None Estimated blood loss: Normal Specimen: Left face mass right face mass right thumb mass Findings: No evidence of cancer on the left facequestionable atypical cells at the 3:00 margin, squamous cell carcinoma on the right face margins free and likely ganglion cyst on the right thumb Anesthesia: General Complications: None Drains: None Fluids and blood products: Nonapplicable Disposition: Recovery room Operative note: Patient brought to the OR and placed in the supine position. Patient prepped and draped in usual sterile fashion. Marcaine 0.5% infiltrated locally for postop pain control. 15 blade used to make a 4 x 1 cm incision on the left face region where the previous scar was. Entire scar excised and sent to pathology for frozen section. Frozen section revealed no evidence of cancer; however, there was a questionable area at 3:00 that could be atypical cells but the tissue was crushed so no definitive diagnosis could be made. At this point we decided not to excise any more tissue as little scar was near the left eye and would have resulted in possible cosmetic issues not favorable to the patient's face. We will wait for the permanent sections before making any further decisions. Wound was irrigated bleeding controlled cautery. 3-0 chromic was used to close the subcutaneous tissue. 5-0 nylon was used to close skin. Sterile dressing applied. Right face a 4 x 2 cm incision was made to excise this 0.75 cm raised mass with necrotic center. Entire mass excised and sent to pathology for frozen section. Frozen section revealed squamous cell carcinoma and the margins were free. Wound irrigated and bleeding controlled with cautery. 3-0 chromic used to reapproximate subcutaneous tissue. 5-0 nylon used to close skin. Sterile dressing applied. On the right thumb, on the dorsum, near the metacarpal and first phalanx joint a 1 cm mass was present. A 2 cm incision was made and subcutaneous tissue divided. Mass appeared to be a ganglion cyst. It was dissected free to the neck of the cyst. 3-0 Vicryl was used in a [id number] fashion to tie off the neck of the cyst. Cyst was excised sent to pathology as specimen. Wound was irrigated and bleeding controlled cautery. 3-0 chromic was used to reapproximate subcutaneous tissue. 4-0 nylon was used to close skin. Sterile dressing applied. Patient awakened and taken to recovery room in good general condition. CC: Dr. Santamaria's office
[2023-05-05 11:08] VITALS: O2SAT 93
[2023-05-05 11:32] VITALS: BP 114/56; TEMP 96.3
== END 2023-05-05 11:50 | disposition home or self-care (01) ==
LOC: OR 06:59
PROVIDERS: ATTEND Surgery
PROC: 0JB10ZZ Excision of Face Subcutaneous Tissue and Fascia, Open Approach (ICD-10-PCS; 2023-05-05)
PROC: 0JBJ0ZZ Excision of Right Hand Subcutaneous Tissue and Fascia, Open Approach (ICD-10-PCS; 2023-05-05)
PROC: 0JB10ZZ Excision of Face Subcutaneous Tissue and Fascia, Open Approach (ICD-10-PCS; principal; 2023-05-05 08:30)
DX: C44.320 Squamous cell carcinoma of skin of unspecified parts of face (principal); M67.441 Ganglion, right hand; L90.5 Scar conditions and fibrosis of skin; L92.2 Granuloma faciale [eosinophilic granuloma of skin]
CPT/HCPCS: 85025; 80048; 36415; 82947 ×2; 88331; 88332; 88304; 88305; 11644; 11444; 11421; J2704; J2001; J3010; J2405; J7030; J2250

== ENCOUNTER 2024-10-05 10:57 | Emergency (ER) | payer OTHER ==
--- OUTSIDE RECORDS SUMMARY | 2024-10-05 11:01 | XMS REPORT | Continuity of Care Document ---
Author Name Unknown Address [address] [facility] [address] [place] [address] [facility] [place] Address [address] [facility] [address] [place] [address] Care Team Providers Care Sample Worker Name Role Phone LINSEY SANTAMARIA Primary Care Physician Unavailab Linsey Cotto Attending Clinician Unavailable Justyna POLO Attending Clinician Unavailable Jonny Joiner Attending Clinician Unavailable SIM BHAGAT Attending Clinician Unavailable SIM BHAGAT Attending Clinician Unavailable Doctor Unassigned, [place] Attending Clinician U Espinoza Cat MD Attending Clinician [phone] Lab, Ang - Db Attending Clinician Unavailable ESPINOZA VILLAGOMEZ Attending Clinician Unavail able ESPINOZA VILLAGOMEZ Attending Clinician Unavail able Payers Payer Name Policy Type Policy Number Effective Date Expirati on Date Source [facility] [place] [id number] 2022 00:00:00 Allergies, Adverse Reactions, Alerts Allergy Name Allergy Type Status Severity Reaction(s) Onset Date Inactive Date Treating Clinician Comments Source NO KNOWN ALLERGIE S Drug Class Active [facility] Social History Social Habit Start Date Stop Date Quantity Comments Source Sexual orientation U [facility] Exposure to SARS-CoV-2 (event) 2022-07-31 00:00:00 2022-08-10 14:28:00 Not sure [facility] History of Social function 2022-08-10 00:00:00 2022-08-10 00:00:00 [facility] Sex Ass[birth year] At 1950 00:00:00 1950 00:00:00 [facility] Smoking Status Start Date Stop Date Source Tobacco smoking consumption unknown [facility] Medications Ordered Medication Name Filled Medication Name Start Date Stop Date Current Medication? Ordering Clinician Indication Dosage Frequency Signature (SIG) Comments Components Source atorvastati n 40 mg tablet 08-10 14:57: 41 Yes 40mg Take 1 tablet by mouth at bedtime. [facility] traMADoL 50 mg tablet 08-10 14:57: 41 Yes 50mg Take 1 tablet by mouth every 6 (six) hours as needed. [facility] multivit-mi n-folic-vit K-lycop (ONE-A-DAY MEN'S 50 PLUS) 400-20-370 mcg Tab 08-10 14:57: 41 Yes Take by mouth. [facility] multivit-mi n-folic-vit K-lycop (ONE-A-DAY MEN'S 50 PLUS) 400-20-370 mcg Tab 08-10 14:57: 41 Yes Take by mouth. [facility] aspirin 81 mg EC tablet 08-10 14:50: 01 Yes 81mg Take 1 tablet by mouth in the morning. [facility] glimepiride 2 mg tablet 07-27 00:00: 00 Yes 2mg Take 1 tablet by mouth in the morning and 1 tablet in the evening. Take with meals. [facility] clopidogreL 75 mg tablet 07-12 00:00: 00 Yes 75mg Take 1 tablet by mouth in the morning. [facility] gabapentin 800 mg tablet 07-03 00:00: 00 Yes 800mg Take 1 tablet by mouth in the morning and 1 tablet at noon and 1 tablet in the evening. [facility] metFORMIN 1,000 mg tablet 06-24 00:00: 00 Yes TAKE 1 TABLET BY MOUTH TWICE DAILY WITH A MEAL [facility] Vital Signs Vital Name Observation Time Observation Value Comments Leela garveyisamar Systolic blood pressure 2023-03-29 20:32:00 132 mm[Hg] [facility] Diastolic blood pressure 2023-03-29 20:32:00 48 mm[Hg] [facility] Heart rate 2023-03-29 20:32:00 62 /min Unive [facility] Body temperature 2023-03-29 20:32:00 36.39 Jeannie [facility] Respiratory rate 2023-03-29 20:32:00 18 /min [facility] Body height 2023-03-29 20:32:00 182.9 cm [facility] Body weight 2023-03-29 20:32:00 116.574 kg [facility] BMI 2023-03-29 20:32:00 34.86 kg/m2 [facility] Oxygen saturation in Arterial blood by Pulse oximetry 2023-03-29 20:32:00 99 /min [facility] Systolic blood pressure 2022-08-10 19:51:00 134 mm[Hg] [facility] Diastolic blood pressure 2022-08-10 19:51:00 58 mm[Hg] [facility] Heart rate 2022-08-10 19:51:00 76 /min Unive [facility] Body height 2022-08-10 19:51:00 182.9 cm [facility] Body weight 2022-08-10 19:51:00 123.832 kg [facility] BMI 2022-08-10 19:51:00 37.03 kg/m2 [facility] Procedures Procedure Date / Time Performed Performing Clinicia n Source MEDICAL RELEASE/CLEARANCE FORMS 2023-04-23 06:01:00 Doctor Unassigned, [place] [facility] EXTERNAL PROVIDER RECORDS 2023-03-30 06:01:00 Doctor Unassigned, [place] [facility] ASSIGNMENT OF BENEFITS 2022-08-10 20:49:58 Docto r Unassigned, [place] [facility] Encounters Start Date/Time End Date/Time Encounter Type Admission Type Attending Clinicians Care Facility Care Department Encounter ID Source 2024-05-18 14:06:00 Outpatient RosalioKaiai [facility] [id number] [facility] 2024-05-01 09:20:00 Outpatient Linsey Santamaria [facility] [id number] [facility] 2023-12-22 08:08:00 Outpatient SantamariaLinsey [facility] [id number] [facility] 2023-09-28 15:03:00 Outpatient SantamariaLinsey [facility] [id number] [facility] 2022-07-22 10:36:01 Outpatient SantamariaLinsey STJOSE[facility] [id number] [facility] 2022-06-23 12:41:01 Outpatient SantamariaLinsey [facility] [id number] [facility] 2022-06-22 08:12:01 Outpatient SantamariaLinsey [facility] [id number] [facility] 2022-05-21 15:00:01 Outpatient SantamariaLinsey [facility] [id number] [facility] 2022-05-15 15:15:06 Outpatient POLO, Na [facility] [id number] [facility] 2022-04-27 10:43:02 Outpatient Polo, Na [facility] [id number] [facility] 2022-04-16 13:18:01 Outpatient Polo, Na [facility] [id number] [facility] 2022-02-27 08:04:01 Outpatient Polo, Na [facility] [id number] [facility] 2021-11-10 16:00:02 Outpatient Polo, Na [facility] [id number] [facility] 2021-08-26 10:23:02 Outpatient Polo, Na [facility] [id number] [facility] 2021-08-06 16:04:01 Outpatient Polo, Na [facility] [id number] [facility] 2021-07-03 10:04:01 Outpatient Polo, Na [facility] [id number] [facility] 2021-06-11 14:35:48 Outpatient Robert Na [facility] [id number] [facility] 2021-06-11 13:05:46 Outpatient Polo, Na [facility] [id number] [facility] 2021-06-11 12:25:18 Outpatient Polo, Na [facility] [id number] [facility] 2021-06-11 12:23:42 Outpatient Justyna Polo [facility] [id number] [facility] 2021-06-11 12:23:33 Outpatient Polo, Justyna [facility] [id number] [facility] 2021-06-11 12:22:41 Outpatient Polo, Na [facility] [id number] [facility] 2021-06-11 12:17:25 Outpatient Robert, Na [facility] [id number] [facility] 2021-06-11 12:15:51 Outpatient Polo, Na [facility] [id number] [facility] 2021-06-11 12:14:59 Outpatient Justyna Polo [facility] [id number] [facility] 2021-06-11 12:13:31 Outpatient Jonny Joiner [facility] [id number] [facility] 2021-06-11 12:12:14 Outpatient Jonny Joiner [facility] [id number] [facility] 2021-06-11 12:07:55 Outpatient Jonny Joiner [facility] [id number] [facility] 2021-06-11 12:07:40 Outpatient Jonny Joiner [facility] [id number] [facility] 2023-09-27 13:15:00 2023-09-27 13:15:00 Outpatient SIM PHAN [facility]CHELL [facility] [id number] [facility] 2023-04-23 00:00:00 2023-04-23 00:00:00 Orders Only Doctor Unassigned, [place] [facility] [id number] [facility] 2023-04-21 00:00:00 2023-04-21 00:00:00 Telephone Sim Bhagat [facility] [id number] [id number] [id number] [facility] 2023-03-30 00:00:00 2023-03-30 00:00:00 Orders Only Doctor Unassigned, [place] [facility] [id number] 350.1.13.10 [id number] [id number] [facility] 2023-03-29 14:30:00 2023-03-29 15:43:19 Office Visit Sim Bhagat [facility] 1.2.840.114 350.1.13.10 [id number] [id number] [facility] 2023-03-29 14:30:00 2023-03-29 15:43:19 Outpatient SIM PHAN [facility]CHELL [facility] [id number] [facility] 2023-03-29 14:30:00 2023-03-29 14:30:00 Outpatient SIM PHAN [facility]CHELL [facility] [id number] [facility] 2022-10-05 00:00:00 2022-10-05 00:00:00 Tele[facility] 1..840.114 350.1.13.10 4.2.7.2.686 [id number] [facility] 2022-08-10 16:00:00 2022-08-10 16:15:00 Insole Presser Visit Lab, Miguel Ta Esp[facility]za [facility]agomez [facility] 1..840.114 350.1.13.10 4.2.7.2.686 [id number] [facility] 2022-08-10 14:40:00 2022-08-10 15:51:05 Outpatient R ESPINOZA VILLAGOMEZ [facility] [id number] [facility] 2022-08-10 14:40:00 2022-08-10 15:51:05 Office Visit [facility] 1..840.114 350.1.13.10 4.2.7.2.686 [id number] [facility] 2022-08-10 00:00:00 2022-08-10 00:00:00 Orders Only Doctor Unassigned, [place] [facility] 1..840.114 350.1.13.10 4.2.7.2.686 [id number] [facility]
--- NOTE | 2024-10-05 14:08 | RAD REPORT ---
EXAM: CT CHEST, ABDOMEN AND PELVIS WITHOUT CONTRAST CLINICAL INDICATION: TRAUMA TECHNIQUE: CT chest, abdomen and pelvis was performed without contrast, as per department protocol. A xial, sagittal and coronal reconstructions were obtained. One or more of the following dose reduction techniques were used: Automated exposure control, adjustment of the mA and/or kV according to patient size, and/or iterative reconstruction. Unless otherwise specified, incidental findings do not require dedicated imaging follow-up. Examination is limited by the lack of intravenous contrast material. COMPARISON: 02/24/2023 FINDINGS: LUNGS: No evidence of airspace or interstitial process. No nodules. PLEURA: No pleural effusion. No pneumothorax. MEDIASTINUM AND LYMPH NODES: No mediastinal mass or fluid collection. Normal size mediastinal, hilar, and axillary lymph nodes. OSSEOUS STRUCTURES AND CHEST WALL: Intact. LIVER: Normal in size and contour. No focal lesion or biliary dilatation. Grossly unremarkable gallbl adder. PANCREAS: No mass, ductal dilation, or alfonso-pancreatic fluid. SPLEEN: Normal size. No focal lesion. ADRENALS: Normal; no mass. KIDNEYS: Normal size and contour. No hydronephrosis. URINARY BLADDER: Normal contour. GASTROINTESTINAL TRACT: No bowel obstruction, free air, significant free fluid or abscess. There is moderate diverticulosis coli of the sigmoid colon without diverticulitis. APPENDIX: Normal appendix. LYMPH NODES: No lymphadenopathy. MUSCULOSKELETAL: No acute or suspicious osseous abnormality. OTHER: Mild prostatomegaly. IMPRESSION: No acute seen in the chest, abdomen or pelvis.
[2024-10-05] MEDS ORDERED: HYDROCODONE/APAP 5/325 MG TAB ONE (14:21)
--- NOTE | 2024-10-05 14:31 | ER ---
Nurse's Notes [facility] Name: Donald Rogers Age: 74 yrs Sex: Male : 1950 Arrival Date: 10/05/2024 Time: 10:57 Bed 11 Private MD: Diagnosis: Right rib contusion Presentation: 10/05 11:23 Chief complaint: Patient states: he was mowing Wednesday, and fell. Patient felt like his ap3 legs gave out on him. patient denies hitting his head, or any LOC. Patient states he was in an awkward position for about an hour and a half until his neighbor came to help him. patient is currently complaining of right side pain, that gets worse with movement. Coronavirus screen: At this time, the client does not indicate any symptoms associated with coronavirus-19. Ebola Screen: No symptoms or risks identified at this time. Initial Sepsis Screen: Does the patient meet any 2 criteria? No. Patient's initial sepsis screen is negative. Does the patient have a suspected source of infection? No. Patient's initial sepsis screen is negative. Risk Assessment: Do you want to hurt yourself or someone else? Patient reports no desire to harm self or others. Onset of symptoms was October 02, 2024. 11:23 Method Of Arrival: Wheelchair ap3 11:23 Acuity: ARIS 4 ap3 Triage Assessment: 11:27 General: Appears in no apparent distress. Behavior is calm, cooperative, appropriate ap3 for age. Pain: Complains of pain in right lateral anterior chest Pain. Neuro: Level of Consciousness is awake, alert, obeys commands, Oriented to person, place, time, situation. Cardiovascular: Patient's skin is warm and dry. Respiratory: Airway is patent Respiratory effort is even, unlabored, Respiratory pattern is regular, symmetrical. Musculoskeletal: Range of motion: Reports pain in Right side. Historical: - Allergies: 11:26 No Known Allergies; ap3 - PMHx: 11:26 Diabetes - NIDDM; Heart Murmur; neuropathy; ap3 - Immunization history:: Client reports receiving the 2nd dose of the Covid vaccine, Flu vaccine is not up to date. - Infectious Disease History:: Denies. - Social history:: Smoking status: Patient reports the use of cigarette tobacco products, smokes 4 packs per day. Screenin:27 Abuse screen: Denies threats or abuse. Nutritional screening: No deficits noted. ap3 Tuberculosis screening: No symptoms or risk factors identified. 14:48 [facility] ED Fall Risk Assessment (Adult) History of falling in the last 3 months, ap3 including since admission Yes- single mechanical fall (1 pt) Confusion or Disorientation No (0 pts) Intoxicated or Sedated No (0 pts) Impaired Gait Yes (1 pt) Mobility Assist Device Used No (0 pt) Altered Elimination No (0 pt) Score/Fall Risk Level 3 or more points = High Risk Oriented to surroundings, Maintained a safe environment, Educated pt \T\ family on fall prevention, incl call for assistance when getting out of bed, Assessed \T\ reinforced patient's understanding of fall precautions, Hourly rounding (assess needs \T\ fall precautionary measures) done, Used ambulatory aids as needed (educated on \T\ assisted with), Remained w/in arm's length of patient and in sight while toileting, Offered frequent toileting (1:1 observation), Remained with patient while ambulating, Utilized family, sitter, or virtual safety deposit boxes custodian as indicated. Vital Signs: 11:23 BP 131 / 54; Pulse 68; Resp 18; Temp 97.8; Pulse Ox 98% on R/A; Weight 117.93 kg; ap3 Height 6 ft. 0 in. ; 11:23 Body Mass Index 35.26 (117.93 kg, 182.88 cm) ap3 ED Course: 11:00 Patient arrived in ED. al6 11:13 Ruthann Whyte MD is Attending Physician. sp3 11:26 Triage completed. ap3 11:27 Arm band placed on right wrist. ap3 13:48 CT Chest Abdomen Pelvis W/O Contrast In Process Unspecified. EDMS 14:48 No provider procedures requiring assistance completed. Patient did not have IV access ap3 during this emergency room visit. 14:49 Patient has correct armband on for positive identification. Provided Education on: ap3 discharge instructions. Administered Medications: 14:27 Drug: HYDROcodone-acetaminophen PO 5 mg-325 mg 2 tabs PO once Route: PO; ap3 14:49 Follow up: Response: No adverse reaction ap3 Medication: 14:49 VIS not applicable for this client. ap3 Outcome: 14:30 Discharge ordered by . sp3 14:48 Discharged to home via wheelchair, with family, ap3 14:48 Condition: good 14:48 Discharge instructions given to patient, family, Instructed on discharge instructions, follow up and referral plans. Demonstrated understanding of instructions, follow-up care, medications, Prescriptions given X 1, 14:49 Patient left the ED. ap3 Signatures: Dispatcher [employer] Estela Ogden RN RN ap3 Ruthann Whyte MD MD sp3 Eleni Alex6
--- NOTE | 2024-10-05 14:31 | EDPHYS ---
Physician Documentation [facility] Name: Donald Rogers Age: 74 yrs Sex: Male : 1950 Arrival Date: 10/05/2024 Time: 10:57 Bed 11 Private MD: ED Physician Ruthann Whyte HPI: 10/05 14:25 This 74 yrs old Male presents to ER via Wheelchair with complaints of Back Pain, Leg sp3 Pain. 14:25 74-year-old male with history of diabetes, neuropathy presents with mechanical fall sp3 after cutting grass with pain to the right flank. Patient is concerned about a "rib fracture". He denies any difficulty breathing, anterior chest pain, abdominal pain, vomiting, diarrhea, bleeding, head injury or any other signs or symptoms on ROS this time. Injury occurred just prior to arrival. Patient is on Plavix but no other antiplatelet or anticoagulant agents.. Historical: - Allergies: 11:26 No Known Allergies; ap3 - PMHx: 11:26 Diabetes - NIDDM; Heart Murmur; neuropathy; ap3 - Immunization history:: Client reports receiving the 2nd dose of the Covid vaccine, Flu vaccine is not up to date. - Infectious Disease History:: Denies. - Social history:: Smoking status: Patient reports the use of cigarette tobacco products, smokes 4 packs per day. ROS: 14:26 Constitutional: Negative for fever, chills, and weight loss, Eyes: Negative for injury, sp3 pain, redness, and discharge, Neck: Negative for injury, pain, and swelling, Cardiovascular: Negative for chest pain, palpitations, and edema, Respiratory: Negative for shortness of breath, cough, wheezing, and pleuritic chest pain, Abdomen/GI: Negative for abdominal pain, nausea, vomiting, diarrhea, and constipation, MS/Extremity: Negative for injury and deformity, Skin: Negative for injury, rash, and discoloration, Neuro: Negative for headache, weakness, numbness, tingling, and seizure, Psych: Negative for depression, anxiety, suicide ideation, homicidal ideation, and hallucinations, Allergy/Immunology: Negative for hives, rash, and allergies, Endocrine: Negative for neck swelling, polydipsia, polyuria, polyphagia, and marked weight changes, Hematologic/Lymphatic: Negative for swollen nodes, abnormal bleeding, and unusual bruising, 14:26 All other systems are negative, Exam: 14:26 Constitutional: This is a well developed, well nourished patient who is awake, alert, sp3 and in no acute distress. Head/Face: Normocephalic, atraumatic. Eyes: Pupils equal round and reactive to light, extra-ocular motions intact. Lids and lashes normal. Conjunctiva and sclera are non-icteric and not injected. Cornea within normal limits. Periorbital areas with no swelling, redness, or edema. Neck: Trachea midline, no thyromegaly or masses palpated, and no cervical lymphadenopathy. Supple, full range of motion without nuchal rigidity, or vertebral point tenderness. No Meningismus. Cardiovascular: Regular rate and rhythm with a normal S1 and S2. No gallops, murmurs, or rubs. Normal PMI, no JVD. No pulse deficits. Respiratory: Lungs have equal breath sounds bilaterally, clear to auscultation and percussion. No rales, rhonchi or wheezes noted. No increased work of breathing, no retractions or nasal flaring. Abdomen/GI: Soft, non-tender, with normal bowel sounds. No distension or tympany. No guarding or rebound. No evidence of tenderness throughout. MS/ Extremity: Pulses equal, no cyanosis. Neurovascular intact. Full, normal range of motion. Neuro: Awake and alert, GCS 15, oriented to person, place, time, and situation. Cranial nerves II-XII grossly intact. Motor strength 5/5 in all extremities. Sensory grossly intact. Cerebellar exam normal. Normal gait. Psych: Awake, alert, with orientation to person, place and time. Behavior, mood, and affect are within normal limits. 14:26 Back: Pain to the right posterior ribs without crepitus, subcu air or other abnormality., Vital Signs: 11:23 BP 131 / 54; Pulse 68; Resp 18; Temp 97.8; Pulse Ox 98% on R/A; Weight 117.93 kg; ap3 Height 6 ft. 0 in. ; 11:23 Body Mass Index 35.26 (117.93 kg, 182.88 cm) ap3 MDM: 12:36 Medical Screening Exam initiated sp3 14:29 Data reviewed: vital signs, nurses notes, radiologic studies. ED course: 74-year-old sp3 male with right rib contusion versus fracture. CT scan of the chest abdomen pelvis demonstrates no traumatic abnormality. Will treat with p.o. meds and safely discharge patient home. Vital signs are normal.. 10/05 13:27 Order name: CT Chest Abdomen Pelvis W/O Contrast; Complete Time: 14:10 sp3 Administered Medications: 14:27 Drug: HYDROcodone-acetaminophen PO 5 mg-325 mg 2 tabs PO once Route: PO; ap3 14:49 Follow up: Response: No adverse reaction ap3 Disposition Summary: 10/05/24 14:30 Discharge Ordered Notes: Location: Home sp3 Condition: Stable sp3 Diagnosis - Right rib contusion sp3 Followup: sp3 - With: Private Physician - When: Upon discharge from the Emergency Department - Reason: Continuance of care Discharge Instructions: - Discharge Summary Sheet sp3 - Rib Contusion sp3 Forms: - Medication Reconciliation Form sp3 - Antibiotic Education sp3 - Prescription Opioid Use sp3 - Patient Portal Instructions sp3 - Leadership Thank You Letter sp3 Prescriptions: - Tramadol 50 mg Oral Tablet - take 1 tablet ORAL route every 8 hours as needed; 12 tablet; Refills: 0, sp3 Product Selection Permitted Signatures: Dispatcher [employer] Estela Ogden RN RN ap3 Ruthann Whyte MD MD sp3
[2024-10-05 15:10] VITALS: BP 131/54; TEMP 97.8; O2SAT 98
== END 2024-10-05 14:49 | disposition home or self-care (01) ==
LOC: ER 10:57
DX: S20.211A Contusion of right front wall of thorax, initial encounter (principal); W18.30XA Fall on same level, unspecified, initial encounter; F17.210 Nicotine dependence, cigarettes, uncomplicated
CPT/HCPCS: 71250; 74176; 99283